=== PATIENT | male | born 1985 | race Two or more races ===

== ENCOUNTER 2017-05-07 11:54 | Day surgery (SDC) | payer OTHER ==
[2017-05-07] MEDS ORDERED: ANCEF VIAL 1 GM IM ONE (12:04)
--- NOTE | 2017-05-07 12:04 | DR.GENAD ---
HPI - HPI Comment HPI Comment: HISTORY BELOW. - Complaint/Symptoms Chief Complaint Doctors Comments: CUT LEFT INDEX FINGER WITH TABLE SAW BEFORE COMING. TD UTD. Chief Complaint:: Cut left index finger Self Treatment fo Chief Complaint: Cut left index finger with tablesaw. - Nurses notes reviewed Nurses Notes Review: Yes - Source History Provided: Patient - Mode of Arrival Mode of Arrival: Ambulatory - Timing Onset of Chief Complaint: 05/07/17 Came on: Suddenly - Duration Duration: Constant Duration: Hours - Severity Severity: Moderate PMH - PMH Past Medical History: No Past Surgical History: No - Family History History of Family Medical Conditions: Yes Family Medical History: Hypertension - Social History Does patient currently use any type of tobacco product: No Have you used tobacco products in the last 12 months: No Type of Tobacco Use: None Does any household member use tobacco: No Alcohol Use: Rarely Do you use any recreational Drugs:: No Lives With: Spouse Lives Where: Home - infectious screening In the last 2 months have you had wt loss of >10#?: NO Have you had fever, night sweats or hemotysis?: No Have you traveled outside the country in the last 6 months?: No Isolation: Standard ROS - Review of Systems Constitutional: No Symptoms Reported Eyes: No Symptoms Reported ENTM: No Symptoms Reported Respiratoy: No Symptoms Reported Cardiovascular: No Symptoms Reported Gastrointestinal/Abdominal: No Symptoms Reported Genitourinary: No Symptoms Reported Neurological: No Symptoms Reported Musculoskeletal: Right, Hand Integumentary: Other (AVUSION LACERATION DISTAL LEFT INDEX FINGER.) Hematologic/Lymphatic: No Symptoms Reported Endocrine: No Symptoms Reported All Other Systems: Reviewed and Negative PE - Vital Signs Vitals: Temperature 98.2 F Pulse Rate 73 Respiratory Rate 18 Blood Pressure 134/73 O2 Sat by Pulse Oximetry 99 - General Limitations: No Limitations General Appearance: Alert - Head Head Exam: Normal Inspection - Eyes Eye exam: Normal Appearance - Neck Neck Exam: Trachea Midline - Chest Chest Inspection: Symmetric Chest Wall Rise - Respiratory Respiratory Exam: Normal Lung Sounds Bilat Respiratory Exam: Bilateral Clear to Auscultation - Cardiovascular Cardiovascular Exam: Regular Rate, Normal Rhythm, Normal Heart Sounds - Abdominal Exam Abdominal Exam: Normal Inspection - Extremities Extremities Exam: Tenderness (DISTAL LT INDEX FINGER WITH LACERATION.) - Back Back Exam: Normal Inspection - Neurologic Neurological Exam: Alert, Oriented X3 - Psychiatric Psychiatric Exam: Normal Affect, Normal Mood - Skin Skin Exam: Normal Color MDM - Additional Information Additional Information Obtained From: Family - Differential Diagnosis Differential Diagnosis: LACERATION WITH AVUSION DISTAL RT INDEX FINGER. Course - Treatment Treatment: SEE ORDERS. - Consultation Consultation Comments: DISCUSS PATIENT WITH DR. TODD. HE WILL TAKE PATIENT TO OR AND REPAIR FINGER INJURY - Education/Counseling Education/Counseling: Patient, Family, Education Educated On: Treatment, Diagnosis ROR - XRAY XRAY Findings: REPORT DISCUSS WITH PATIENT. - Diagnosis Discharge Problem: Finger fracture, left Qualifiers: Encounter type: initial encounter Finger: index finger Fracture type: open Phalanx: distal Fracture alignment: displaced Qualified Code(s): S62.631B - Displaced fracture of distal phalanx of left index finger, initial encounter for open fracture Laceration of finger Qualifiers: Encounter type: initial encounter Finger: index finger Damage to nail status: with damage Foreign body presence: unspecified Laterality: left Qualified Code(s ): S61.311A - Laceration without foreign body of left index finger with damage to nail, initial encounter - Discharge Plan Disposition: 30 STILL A PATIENT Condition: Stable - Follow ups/Referrals - Instructions
[2017-05-07 12:09] VITALS: BMI 32.1
--- NOTE | 2017-05-07 12:49 | RAD ---
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 Exam: Three view series of the left hand demonstrates diffuse soft tissue swelling of the left index finger with a traumatic laceration of the distal aspect of left index finger as well as a comminute d fracture of the distal 2nd phalanx which is non intra-articular. However, this fracture likely ext ends into the nailbed which places this patient at increased risk for future osteomyelitis. Close in terval followup will be needed. No foreign body or other acute bony injury is seen. There remaining phalanges and visible metacarpal bones are all intact. Impression: Diffuse soft tissue swelling of the left index finger with a traumatic laceration of the distal aspect of left index finger as well as a comminuted fracture of the distal 2nd phalanx which is non intra-articular. However, this fracture likely extends into the nailbed which places this pa tient at increased risk for future osteomyelitis. Close interval followup will be needed. Reported By:
[2017-05-07] MEDS ORDERED: ANCEF VIAL 1 GM 1 GM in NS 50 ML IV + SPIKE MINIBAG* 50 ML IV PRN ×2 (13:22→14:35)
[2017-05-07] MEDS ORDERED: LR 1000 ML IV 1,000 ML IV ONE (14:20)
[2017-05-07] MEDS ORDERED: NS 50 ML IV + SPIKE MINIBAG* 50 ML IV ONE (14:20)
[2017-05-07] MEDS ORDERED: ANCEF VIAL 1 GM ONE (14:21)
[2017-05-07] MEDS ORDERED: NAROPIN 0.75% ONE (14:24)
[2017-05-07] MEDS ORDERED: FENTANYL INJ 100 mcg ONE (14:24)
[2017-05-07] MEDS ORDERED: NS IRRIGATION 1000 ML 1,000 ML with BACITRACIN VIAL 50,000 UNT IR ONE ×2 (15:45)
[2017-05-07] MEDS ORDERED: ZOFRAN INJ 4 MG VIAL ONE (15:47)
[2017-05-07] MEDS ORDERED: VERSED ONE (15:47)
[2017-05-07] MEDS ORDERED: DIPRIVAN VIAL ONE (15:47)
[2017-05-07] MEDS ORDERED: SUPRANE IN ONE (15:47)
[2017-05-07] MEDS ORDERED: ZOFRAN INJ 4 MG VIAL IVP PRN (16:27)
[2017-05-07] MEDS ORDERED: BENADRYL INJ 50 MG VIAL IVP PRN (16:27)
[2017-05-07] MEDS ORDERED: DILAUDID INJ IVP PRN (16:27)
[2017-05-07] MEDS ORDERED: PHENERGAN INJ 25 MG IVP PRN (16:27)
[2017-05-07] MEDS ORDERED: REGLAN INJ 10 MG VIAL IVP PRN (16:27)
[2017-05-07 17:51] VITALS: BP 147/83
== END 2017-05-07 17:52 | disposition home or self-care (01) | DRG 581 ==
LOC: ER 12:02 → SURG1 14:34
PROVIDERS: ATTEND Specialist
PROC: 0JBK0ZZ Excision of Left Hand Subcutaneous Tissue and Fascia, Open Approach (ICD-10-PCS; principal; 2017-05-07 15:00)
DX: S61.311A Laceration without foreign body of left index finger with damage to nail, initial encounter (principal); W31.2XXA Contact with powered woodworking and forming machines, initial encounter; Y92.89 Other specified places as the place of occurrence of the external cause; S62.631B Displaced fracture of distal phalanx of left index finger, initial encounter for open fracture
CPT/HCPCS: 64415; 73130; 96365; 99283; 99284; A4222; J0690; J2250; J2405; J3010; J3490; J7120